=== PATIENT | male | born 1965 | race African-American/Black ===

== ENCOUNTER 2016-08-08 13:32 | Emergency (ER) | payer BC ==
--- NOTE | ~2016-08-08 | CT2 ---
[facility] A Service of [facility] & [facility] RADIOLOGY TEXT RESULTS PATIENT: XIMENA ONEILL LOCATION: [facility] : [birth year] UNIT #: [id number] AGE: [address]: Loraine Vieira MD SEX: M ORDER DR: [id number] [facility] [address] [place], [place] [address] [id number] MR#: [id number] #: [id number] NAME: XIMENA ONEILL : 1965 SEX: M STUDY DATE/TIME: 08/08/2016 20:17 UNIT: [facility] ROOM: STUDY DESCRIPTION: CT Abd and Pelv W Cont Attending Physician: Loraine Vieira M.D. Ordering Physician: Loraine Vieira M.D. Primary Care Physician: Primary Care Physician No MEDICAL IMAGING REPORT This report is preliminary unless electronic signature is present EXAM Abdomen and pelvis CT with contrast, 08/08/2016 INDICATIONS 51-year-old male with abdominal pain for a week, started swelling yesterday. Nausea. History of acid reflux and pancreatitis. TECHNIQUE Contrast-enhanced abdomen and pelvis CT was performed and compared with 02/14/2016. This CT exam was performed with one or more of the following radiation dose reduction techniques: Automatic exposure control, adjustment of mA and/or kV according to patient size, and iterative reconstruction. FINDINGS CT ABDOMEN: Included lung bases demonstrate scattered areas of atelectatic change with a lower lobe-predominance on the left and middle lobe-predominance on the right. No effusion. Aorta demonstrates no aneurysm or dissection. The spleen and right adrenal gland are unremarkable. There is a low-attenuation adrenal mass on the left measuring 3.1 cm, essentially unchanged from the prior study for technical factors. This measures fluid-attenuation but cannot be classified as an adrenal adenoma, based on CT density. Compared to a more distant study performed in 2010, it appears larger. It is still most likely benign, based on imaging features and slow interval growth over the past 6 years but should be correlated clinically. There is fatty infiltration of the liver and the gallbladder is unremarkable. The pancreas demonstrates subtle peripancreatic fat stranding associated with the proximal body of the pancreas and perhaps some subtle stranding associated with the uncinate process. Correlate clinically for signs or symptoms of mild acute pancreatitis and correlation with amylase and lipase levels is recommended. The kidneys [facility]. [facility] A Service of [facility] RADIOLOGY TEXT RESULTS PATIENT: XIMENA ONEILL LOCATION: [facility] : 65 UNIT #: [id number] AGE: [address]: Loraine Vieira MD SEX: M ORDER DR: are unremarkable. CT PELVIS: Prostate prominent but otherwise unremarkable. Bladder is unremarkable. No drainable fluid collection or free fluid in the pelvis. Bowel demonstrates no obstruction or focal inflammatory change, and the appendix is normal. Inguinal canals are unremarkable. There is no suspicious bone lesion. There are bilateral pars defects at L5-S1, no significant associated listhesis. IMPRESSION 1. There is some subtle peripancreatic fat stranding suggestive of mild acute pancreatitis. Correlate with amylase and lipase levels. 2. There is a 3.1 cm low-attenuation left adrenal mass. This is unchanged from the prior study in January last year but larger when compared to a more distant 2010 study. This is still likely to be benign but should be correlated clinically. 3. Mild fatty infiltration of the liver. 4. Appendix normal. Dictated by... Danny Hurley M.D. THIS IS AN ELECTRONICALLY VERIFIED REPORT Danny Hurley M.D. at 08/08/2016 10:27 PM CARLOS/pavan TD: 08/08/2016 21:38 JOB #: [id number] MEDICAL IMAGING REPORT Page 1 of 1 COPY
[~2016-08-08 13:32] MED LIST: ALPRAZOLAM PO
[2016-08-08 14:55] LABS: BASOPHIL# 0.1 X10e3 (0-0.3); BASOPHIL% 0.6 % (0-2.5); EOSINOPHIL# 0.2 X10e3 (0-0.7); EOSINOPHIL% 2.1 % (0.0-7.0); HEMATOCRIT 46.2 % (38.0-50.0); HEMOGLOBIN 15.7 gm/dL (13.0-16.0); LYMPHOCYTE# 2.7 X10e3 (1.0-3.5); MEAN CELL VOLUME 95.1 FL (83-96); MEAN CORPUSCULAR HEMOGLOBIN 32.4 PG (28-34); MEAN PLATELET VOLUME 7.9 FL (6.5-11.5); MONOCYTE# 0.6 X10e3 (0-1.0); MONOCYTE% 5.2 % (3.0-12.0); NEUTROPHIL# 7.2 X10e3 (1.5-7.1); NEUTROPHIL% 67.1 % (40-75); PLATELET COUNT 336 X10e3 (140-420); RED BLOOD COUNT 4.86 X10e (3.90-5.60); RED CELL DISTRIBUTION WIDTH 14.6 % (11.0-15.5); WHITE BLOOD COUNT 10.8 X10e3 (4.0-10.5)
[2016-08-08 14:59] LABS: DIFF IND NO
[2016-08-08 15:22] LABS: ALBUMIN SERUM 4.3 g/dL (3.5-5.0); ALKALINE PHOSPHATASE 90 U/L (32-92); ALT (SGPT) 64 U/L (10-40); AST (SGOT) 68 U/L (10-42); BILIRUBIN, DIRECT <0.1 mg/dL (0.0-0.2); BILIRUBIN,INDIRECT 0.2 mg/dL (0.0-0.9); BILIRUBIN,TOTAL 0.3 mg/dL (0.2-2.0); BLOOD UREA NITROGEN 9 mg/dL (9-23); BUN/CREATININE RATIO 11.25; CALCIUM SERUM 9.8 mg/dL (8.4-10.2); CARBON DIOXIDE 26 mmol/L (22-31); CHLORIDE 102 mmol/L (100-111); CREATININE SERUM 0.8 mg/dL (0.6-1.4); GLOM FILT RATE Estimated 119.9 mL/min (>60); GLUCOSE FASTING 202 mg/dL (70-110); LIPASE 45 U/L (22-51); POTASSIUM 3.8 mmol/L (3.5-5.1); PROTEIN TOTAL SERUM 7.3 g/dL (6.0-8.3); SODIUM 138 mmol/L (135-145)
[2016-08-08 18:52] LABS: URINE SOURCE CLEAN CATCH
[2016-08-08 18:56] LABS: URINE APPEARANCE CLEAR; URINE BILIRUBIN NEG (NEG); URINE BLOOD NEG (NEG); URINE COLOR YELLOW; URINE GLUCOSE NEG (NEG); URINE KETONE NEG (NEG); URINE LEUKOCYTE ESTERASE NEG (NEG); URINE NITRATE NEG (NEG); URINE PROTEIN NEG (NEG); URINE SPECIFIC GRAVITY 1.011 (1.003-1.035); URINE UROBILINOGEN 0.2 MG/DL (NEG)
[2016-08-08 18:59] LABS: CULTURE INDICATED? NO
[2016-08-09] MEDS ORDERED: BENTYL10 MG PO (16:51)
[2016-08-09] MEDS ORDERED: NAPROXEN PO (16:54)
[2016-08-09] MEDS ORDERED: ORAL ANALGESIC9 GM MT (16:55)
[2016-08-09] MEDS ORDERED: PHENERGAN PO (16:56)
[2016-08-09] MEDS ORDERED: NORVASC10 MG PO (16:56)
[2016-08-09] MEDS ORDERED: TUMS200 MG PO (16:56)
[2016-08-09] MEDS ORDERED: ESOMEPRAZOLE MA20 MG PO (16:57)
[2016-08-09] MEDS ORDERED: GABAPENTIN300 MG PO (17:07)
== END 2016-08-08 22:28 | disposition home or self-care (01) ==
LOC: CED 13:32
DX: K85.90 Acute pancreatitis without necrosis or infection, unspecified (principal); K21.9 Gastro-esophageal reflux disease without esophagitis
CPT/HCPCS: 36415; 74177; 80048; 80076; 81003; 83690; 85025; 96361; 96374; 96375; 99284; C9113; J1885; J2270; Q9967

== ENCOUNTER 2016-08-09 14:26 | Inpatient (IN) | payer BC, OTHER ==
--- NOTE | ~2016-08-09 | DS ---
Unit #: [id number] #: [id number] Patient: XIMENA ONEILL [id number] [facility] [address] [place], [place] [address] [id number] I MR#: [id number] NAME: XIMENA ONEILL ROOM: [facility] Age: 51 Sex: M Admission Date: 08/09/2016 : 1965 Discharge Date: 08/12/2016 Attending Physician: Earlene Joe M.D. Primary Care Physician: Primary Care Physician No DISCHARGE SUMMARY DIAGNOSIS ON ADMISSION Acute pancreatitis. DIAGNOSES ON DISCHARGE 1. Acute pancreatitis, recurrent, resolved. 2. History of alcohol abuse. 3. Increased liver function tests likely secondary to alcoholic liver disease. 4. Hypertension. 5. History of tobacco abuse. 6. Gastroesophageal reflux disease. 7. Left adrenal mass likely benign. Followup with primary care physician. CONSULTATIONS Dr. Chaparro Langley in GI consultation. LABS AND PROCEDURES DONE The patient's creatinine is 0.6, sodium 134, potassium is 3.7, AST 55, ALT is 84, amylase is 61, lipase is 45. White blood count 12.4, hemoglobin is 15.2, platelet count is 299. Urinalysis did not reveal any WBCs. Triglyceride level was 325. Blood culture did not reveal any growth. IMAGING: Abdominal ultrasound revealed fatty infiltration of the liver, otherwise it was negative. CT scan of the abdomen and pelvis revealed some subtle peripancreatic fat stranding suggestive of mild acute pancreatitis. There was 3.1 cm low attenuation left adrenal mass which is unchanged from prior study in January last year but larger when compared to the 2010 study, this is still likely to be benign but should be correlated clinically. HOSPITAL COURSE Hessw-hql-caik-old male, was admitted to [facility] with abdominal pain, details are as per admission history and physical. The patient was treated symptomatically for acute pancreatitis. The patient responded well and is tolerating diet well now. His amylase and lipase are much better. Elevated LFTs, they are likely secondary to alcoholic liver disease. The patient is advised to follow up with primary care physician. Left adrenal mass, it is likely benign. I advised the patient to follow up with primary care physician. Unit #: [id number] #: [id number] Patient: XIMENA ONEILL Elevated triglycerides. The patient is advised to follow up with primary care physician by having fasting lipid profile, if the patient's LFTs are elevated and it would be a difficult situation to start him on medicine for triglycerides. The patient is advised to follow up with GI. RECOMMENDATIONS ON DISCHARGE Condition is stable. Activity as tolerated. MEDICATIONS 1. Neurontin 300 mg p.o. t.i.d. 2. Phenergan 25 mg p.o. q.4h p.r.n. 3. Bentyl 10 mg p.o. q.8h p.r.n. 4. Norvasc 10 mg p.o. daily 5. Nexium 20 mg p.o. daily 6. TUMs two tablets p.o. daily 7. [place] 5/325 mg one p.o. q.8h p.r.n. #10 dispensed for back pain FOLLOWUP The patient is advised to followup with primary care physician in one week and have a CBC, CMP, and fasting lipid profile done for follow up increased triglycerides and WBC. The patient is advised to follow up with GI in 2 to 4 weeks and with JADAC as recommended regarding alcohol abuse. The patient is advised to follow up with Dr. Chaparro Langley. Dictated by... Blaise Monreal/brunilda TD: 08/12/2016 15:23 JOB #: [id number] CC: Chaparro Langley M.D. [facility]. DISCHARGE SUMMARY Page 1 of 1 X Betty Khalil MD X DISCHARGE SUMMARY
--- NOTE | ~2016-08-09 | HP ---
Unit #: [id number] #: [id number] Patient: XIMENA ONEILL [id number] [address] [place], [place] [address] [id number] I MR#: [id number] NAME: XIMENA ONEILL ROOM: 26697 Age: 51 Sex: M Admission Date: 08/09/2016 : 1965 Attending Physician: Earlene Joe M.D. Primary Care Physician: Primary Care Physician No HISTORY AND PHYSICAL CHIEF COMPLAINT Abdominal pain. HISTORY OF PRESENT ILLNESS Mr. Oneill is a nice 51-year-old male who presents to the ER for above. The patient has been in [facility] since 07/15/2016 for alcohol treatment. He does have a history of alcohol-induced pancreatitis in the past for which he has been seen at [facility]. The patient states approximately two days ago he began having epigastric pain described as deeply achy and associated with some nausea. He was seen in this emergency department yesterday and had a CT scan revealing early pancreatitis. However, amylase and lipase were normal. He was instructed to follow a clear liquid diet and was given some oral pain medications. Today, his pain became increasingly severe. He developed recurrent nausea and had one to two episodes of nonbloody emesis. He has not had any diarrhea. He denies any melena or hematochezia. He presents back to this facility today tachycardic and hypertensive with a blood pressure of 170/105. Lab work today does reveal an elevated amylase and lipase and he is being referred for admission. PAST MEDICAL HISTORY 1. Chronic alcohol abuse. 2. History of alcohol-induced pancreatitis. 3. Hypertension. 4. Tobaccoism. 5. Gastroesophageal reflux disease. PAST SURGICAL HISTORY Includes eye surgery. HOME MEDICATIONS Include: 1. Bentyl 10 mg p.o. q.8 h. for stomach cramps. 2. Naproxen 500 mg p.o. b.i.d. p.r.n. for pain. 3. Benzocaine applied to tooth q.4 h. p.r.n. for tooth pain. 4. Phenergan 25 mg p.o. q.4 h. p.r.n. for vomiting. 5. Tums 500 mg two tablets daily. 6. Norvasc 10 mg daily. 7. Nexium 20 mg daily. 8. Gabapentin 300 mg p.o. t.i.d. ALLERGIES No known drug allergies. Unit #: [id number] #: [id number] Patient: XIMENA ONEILL SOCIAL HISTORY The patient was drinking 1-2 pints of hard alcohol daily in addition to beer. His last drink was on 07/13/2016. He smokes one-half pack of cigarettes per day but does admit he would smoke up to a pack per day when he was drinking. He denies ever having any illicit drug use. He is not . FAMILY HISTORY Significant for hypertension in patient's mother. Patient's grandmother also had diabetes. No family history of pancreatitis or any sort of abdominal masses or malignancies. REVIEW OF SYSTEMS The patient endorses some increasing abdominal swelling as of the last few days and abdominal pain. He denies chest pain, palpitations, orthopnea, weight gain or loss, difficulty swallowing, vision changes, dysuria, hematuria, falls, no new tingling, numbness or weakness of extremities. No suicidal or homicidal ideation. PHYSICAL EXAMINATION VITAL SIGNS: Temperature 97.8, blood pressure 170/105, pulse rate 114, respiratory rate 16, oxygen saturation 99% on room air. GENERAL: The patient is awake, he is alert. He is oriented times 3 with good eye contact. HEENT: Pupils equally round and reactive to light bilaterally. Anicteric sclerae. No conjunctival pallor. Oropharynx with mildly dry mucous membranes. No erythema or exudate. NECK: Supple. No lymphadenopathy, no thyromegaly, no JVD. CARDIOVASCULAR: Tachycardic but regular rhythm without murmur, rub or gallop. LUNGS: Diminished bilaterally with expiratory wheezes occasionally. No wheezes, rhonchi or crackles. ABDOMEN: Soft, distended. It is tender in all four quadrants but greatest in the right and left upper quadrant without guarding or rebound. No appreciable hepatosplenomegaly. Bowel sounds are present. EXTREMITIES: No cyanosis, clubbing, or edema. Pedal pulse 2/4. SKIN: Warm, moist, without rash. NEUROLOGIC: Cranial nerves intact. Sensation, strength and deep tendon reflexes are normal. PSYCHIATRIC: No suicidal or homicidal ideation. MUSCULOSKELETAL: No significant joint abnormalities noted on exam. DIAGNOSTIC STUDIES LABORATORY: From earlier today revealed a white blood cell count of 18.3, hemoglobin 16.0, platelet count 327,000. Differential reveals 81% neutrophils and 1% bands. CMP reveals a sodium of 132, potassium 4.1, chloride 95, bicarb 27, BUN 18, creatinine 0.7, glucose 140, AST elevated 99, ALT 93, alkaline phosphatase 106. Bilirubin, LFTs are otherwise normal. Calcium is also normal. Urinalysis done yesterday was negative. IMAGING: CT scan of the abdomen and pelvis with contrast, done yesterday, reveals fatty infiltration of liver. Pancreas had subtle peripancreatic fat stranding along the proximal body of the pancreas in association with the uncinate process. There was a 3.1 cm left adrenal mass. This is felt to be benign in origin. Unit #: [id number] #: [id number] Patient: XIMENA ONEILL ASSESSMENT 1. SIRS versus sepsis secondary to #2. 2. Acute pancreatitis. 3. Hypertension. 4. Known left adrenal mass. 5. Gastroesophageal reflux disease. 6. Tobaccoism. 7. History of alcohol abuse with cessation of approximately four weeks. PLAN 1. Will admit patient to inpatient status with telemetry. 2. Will place on aggressive IV hydration in addition to pain medications and antiemetics. 3. In regard to pancreatitis, we will check followup blood work in the morning. 4. I do not clinically feel that he has infection at this time. I am going to hold antibiotics and initiate sepsis protocol. If lactic acid is elevated, I will begin antibiotic therapy. 5. I will restart Norvasc for his blood pressure and provide hydralazine on a p.r.n. basis. 6. Initiate PPI therapy IV in regard to his reflux. 7. Briefly counseled regarding tobaccoism. 8. DVT prophylaxis. 9. I will check an alcohol level on blood in the lab but this should be negative given his current living conditions. 10. Will also check urine drug screen. Dictated by Earlene Joe M.D. CORNELIO/carl TD: 08/09/2016 19:11 JOB #: [id number] HISTORY AND PHYSICAL Page 1 of 1 X Earlene Joe MD X HISTORY AND PHYSICAL
--- NOTE | ~2016-08-09 | US6 ---
[facility] A Service of [facility] RADIOLOGY TEXT RESULTS PATIENT: XIMENA ONEILL LOCATION: [facility] : [birth year] UNIT #: [id number] AGE: [address]: Earlene Joe MD SEX: M ORDER DR: [id number] [place] [address] [facility] [place], [place] [address] [id number] MR#: [id number] Acc #: [id number] NAME: XIMENA ONEILL : 1965 SEX: M STUDY DATE/TIME: 08/10/2016 10:29 UNIT: [facility] ROOM: [facility] STUDY DESCRIPTION: US Abdominal Limited Attending Physician: Earlene Joe M.D. Ordering Physician: Earlene Joe M.D. Primary Care Physician: Primary Care Physician No MEDICAL IMAGING REPORT This report is preliminary unless electronic signature is present EXAM Right upper quadrant ultrasound 08/10/2016 INDICATION Abdominal pain for a few days. Findings on recent CT suspicious for acute pancreatitis. TECHNIQUE Sonographic imaging of the right upper quadrant was performed. Correlation is made with CT 08/08/2016. FINDINGS Visualized aspects of the pancreas are unremarkable. Portions were obscured by bowel gas and not seen or evaluated. The liver demonstrates increased echogenicity compared to the right kidney most characteristic of fatty infiltration. It measures 19.2 cm long axis and is otherwise unremarkable. The right kidney is nonobstructed. The gallbladder is normal. Extrahepatic common bile duct measures 6-7 mm, borderline in diameter. IMPRESSION Fatty infiltration of the liver; otherwise, negative right upper quadrant ultrasound. The common bile duct is borderline in diameter at 6-7 mm. Dictated by... Danny Hurley M.D. THIS IS AN ELECTRONICALLY VERIFIED REPORT Danny Hurley M.D. at 08/10/2016 2:59 PM CARLOS/santosh [facility] A Service of [facility] RADIOLOGY TEXT RESULTS PATIENT: XIMENA ONEILL LOCATION: [facility] 554-01 : [birth year] UNIT #: [id number] AGE: [address]: Earlene Joe MD SEX: M ORDER DR: TD: 08/10/2016 14:19 JOB #: [id number] MEDICAL IMAGING REPORT Page 1 of 1 COPY
--- NOTE | ~2016-08-09 | CO ---
Unit #: [id number] #: [id number] Patient: XIMENA ONEILL [id number] [address] [place], [place] [address] [id number] I MR#: [id number] NAME: XIMENA ONEILL ROOM: 47 Age: 51 Sex: M Admission Date: 08/09/2016 : 1965 Attending Physician: Earlene Joe M.D. Primary Care Physician: Primary Care Physician No Consultation Date: 08/11/2016 CONSULTATION REPORT DICTATED FOR Dr. Chaparro Langley. PRIMARY CARE PHYSICIAN No primary care physician. REASON FOR CONSULTATION Acute pancreatitis. HISTORY OF PRESENT ILLNESS The patient is a very pleasant 51-year-old male with past medical history of alcohol abuse, recurrent alcohol-induced pancreatitis and hypertension, his last episode of acute pancreatitis was over a year and half ago. The patient has presented to the emergency room with acute onset of epigastric pain associated with nausea and vomiting. The patient was initially seen in the emergency room one-day prior, at the time CT show mild acute pancreatitis but pancreatic enzymes were normal. The patient was, therefore, sent home. However, his symptoms progressively worsened, and therefore, returned to the emergency room for evaluation. In the ER, his pancreatic enzymes were noted to be significantly elevated. There is no history of fever, chills, recent weight loss, or overt gastrointestinal blood loss in form of hematemesis, melena, or hematochezia. The patient has a long-standing history of alcohol abuse, he was drinking 1 to 3 pints of hard liquor on a daily basis. His last drink was over 2 months ago and he is currently in [facility] since then. Currently, the patient is comfortable, still has epigastric pain. Nausea has improved and he has been tolerating a regular diet. PAST MEDICAL HISTORY Chronic alcohol abuse, alcohol-induced pancreatitis, hypertension, and GERD. PAST SURGICAL HISTORY Eye surgery. HOME MEDICATIONS Bentyl, naproxen, benzocaine, Phenergan, Tums, Norvasc, Nexium, and gabapentin. ALLERGIES No known drug allergies. SOCIAL HISTORY Unit #: [id number] #: [id number] Patient: XIMENA ONEILL The patient lives at home alone. He was drinking 1 to 3 pints of hard liquor on a daily basis. His last drink was about 2 months ago. He smokes half a pack of cigarettes a day. He denies illicit drug use. FAMILY HISTORY None for colon or pancreatic cancer, or liver disease. REVIEW OF SYSTEMS Detailed review of organ systems does not reveal any recent weight loss. No history of fever, chills, or rigors. No history of headache, seizures, chest pain, syncope. There is history of epigastric pain, nausea, vomiting. No history of cough, expectoration, or hemoptysis. No recent change in bowel habits or overt gastrointestinal blood loss in the form of hematemesis, melena, or hematochezia. The rest of review of organ systems are unremarkable. PHYSICAL EXAMINATION GENERAL: The patient is awake, alert, appears comfortable, in no acute distress. VITAL SIGNS: Stable with temperature 98.1, blood pressure 145/86, heart rate 93, respirations 16. HEENT: There is no pallor. No scleral icterus. No lymphadenopathy or peripheral edema. CARDIOVASCULAR: Regular rate and rhythm. LUNGS: Clear to auscultation bilaterally. ABDOMEN: Soft, mild gaseous distention, tender epigastric area. No guarding. Liver and spleen not palpable. Bowel sounds are normal. DIAGNOSTIC STUDIES LABORATORY RESULTS: Complete metabolic panel notable for glucose 126, normal BUN and creatinine, potassium 3.4. AST 89, ALT 102, alkaline phosphatase 94. Lipase 74 down from 383 on admission. CBC with WBC 12.3, normal hemoglobin of 15.6, and platelets 279. IMAGING STUDIES: CT of abdomen and pelvis show subtle peripancreatic fat stranding suggestive of mild acute pancreatitis, mild fatty infiltration of liver. Abdominal ultrasound show fatty infiltration of the liver and borderline dilated common bile duct at 6 to 7 mm. CLINICAL IMPRESSION AND PLAN The patient's presentation and clinical findings suggested recurrent pancreatitis secondary to history of alcohol abuse. There is no suggestion of biliary etiology. The patient is feeling somewhat better, tolerating regular diet. No further intervention is warranted at this time. We will continue with supportive management and re-evaluate the patient in the morning. The patient and plan of care discussed in detail with Dr. Langley. Further recommendations to follow. Thank you very much for asking us to see this patient. We appreciate the consult. Dictated by... LILI Griffin/verónica TD: 08/12/2016 03:55 Unit #: [id number] #: [id number] Patient: XIMENA ONEILL JOB #: [id number] CONSULTATION REPORT Page 1 of 1 X X CONSULTATION REPORT
[2016-08-09 14:58] LABS: BASOPHIL# 0.1 X10e3 (0-0.3); BASOPHIL% 0.4 % (0-2.5); EOSINOPHIL# 0.1 X10e3 (0-0.7); EOSINOPHIL% 0.7 % (0.0-7.0); HEMATOCRIT 47.2 % (38.0-50.0); LYMPHOCYTE# 1.9 X10e3 (1.0-3.5); LYMPHOCYTE% 10.2 % (17.0-45.0); MEAN CELL VOLUME 95.3 FL (83-96); MEAN CORPUSCULAR HEMOGLOBIN 32.2 PG (28-34); MEAN CORPUSCULAR HGB CONC 33.8 g/dL (30-36); MEAN PLATELET VOLUME 7.4 FL (6.5-11.5); MONOCYTE# 0.8 X10e3 (0-1.0); MONOCYTE% 4.2 % (3.0-12.0); NEUTROPHIL# 15.4 X10e3 (1.5-7.1); NEUTROPHIL% 84.5 % (40-75); PLATELET COUNT 327 X10e3 (140-420); RED BLOOD COUNT 4.96 X10e (3.90-5.60)
[2016-08-09 15:00] LABS: DIFF IND YES; WHITE BLOOD COUNT 18.3 X10e3 (4.0-10.5)
[2016-08-09 15:19] LABS: ALBUMIN SERUM 4.7 g/dL (3.5-5.0); BILIRUBIN, DIRECT 0.1 mg/dL (0.0-0.2); BILIRUBIN,INDIRECT 0.6 mg/dL (0.0-0.9); BILIRUBIN,TOTAL 0.7 mg/dL (0.2-2.0); BUN/CREATININE RATIO 11.42; CALCIUM SERUM 9.7 mg/dL (8.4-10.2); CREATININE SERUM 0.7 mg/dL (0.6-1.4); GLOM FILT RATE Estimated 126.7 mL/min (>60); POTASSIUM 4.1 mmol/L (3.5-5.1); PROTEIN TOTAL SERUM 8.3 g/dL (6.0-8.3)
[2016-08-09 15:20] LABS: PLATELET ESTIMATE NORMAL (NORMAL); RBC NORMAL YES
[2016-08-09] MEDS ORDERED: BENTYL10 MG PO (16:51)
[2016-08-09] MEDS ORDERED: NAPROXEN PO (16:54)
[2016-08-09] MEDS ORDERED: ORAL ANALGESIC9 GM MT (16:55)
[2016-08-09] MEDS ORDERED: NORVASC10 MG PO (16:56)
[2016-08-09] MEDS ORDERED: PHENERGAN PO (16:56)
[2016-08-09] MEDS ORDERED: TUMS200 MG PO (16:56)
[2016-08-09] MEDS ORDERED: ESOMEPRAZOLE MA20 MG PO (16:57)
[2016-08-09] MEDS ORDERED: GABAPENTIN300 MG PO (17:07)
[2016-08-09 18:48] LABS: AMPHETAMINE NEG (NEG); BARBITURATES NEG (NEG); BENZODIAZEPINES NEG (NEG); COCAINE NEG (NEG); MARIJUANA NEG (NEG); OPIATES POS (NEG); TRICYCLIC ANTIDEPRESSANTS NEG (NEG); U METHADONE NEG (NEG)
[2016-08-10 06:05] LABS: BASOPHIL# 0.1 X10e3 (0-0.3); BASOPHIL% 0.5 % (0-2.5); EOSINOPHIL# 0.3 X10e3 (0-0.7); HEMATOCRIT 44.6 % (38.0-50.0); HEMOGLOBIN 14.9 gm/dL (13.0-16.0); LYMPHOCYTE# 2.8 X10e3 (1.0-3.5); LYMPHOCYTE% 21.8 % (17.0-45.0); MEAN CELL VOLUME 95.6 FL (83-96); MEAN CORPUSCULAR HGB CONC 33.5 g/dL (30-36); MEAN PLATELET VOLUME 7.7 FL (6.5-11.5); MONOCYTE# 1.1 X10e3 (0-1.0); MONOCYTE% 8.3 % (3.0-12.0); NEUTROPHIL# 8.7 X10e3 (1.5-7.1); NEUTROPHIL% 67.4 % (40-75); PLATELET COUNT 285 X10e3 (140-420); RED BLOOD COUNT 4.67 X10e (3.90-5.60); RED CELL DISTRIBUTION WIDTH 15.2 % (11.0-15.5); WHITE BLOOD COUNT 12.9 X10e3 (4.0-10.5)
[2016-08-10 06:12] LABS: DIFF IND NO
[2016-08-10 06:42] LABS: ALBUMIN SERUM 4.2 g/dL (3.5-5.0); BILIRUBIN,TOTAL 0.8 mg/dL (0.2-2.0); CALCIUM SERUM 9.3 mg/dL (8.4-10.2); CREATININE SERUM 0.5 mg/dL (0.6-1.4); GLOM FILT RATE Estimated 145.5 mL/min (>60); MAGNESIUM 1.8 mg/dL (1.6-3.0); POTASSIUM 3.8 mmol/L (3.5-5.1); PROTEIN TOTAL SERUM 6.9 g/dL (6.0-8.3)
[2016-08-11 03:02] LABS: HEMATOCRIT 46.7 % (38.0-50.0); HEMOGLOBIN 15.6 gm/dL (13.0-16.0); MEAN CELL VOLUME 95.7 FL (83-96); MEAN CORPUSCULAR HGB CONC 33.4 g/dL (30-36); MEAN PLATELET VOLUME 7.4 FL (6.5-11.5); RED BLOOD COUNT 4.88 X10e (3.90-5.60); RED CELL DISTRIBUTION WIDTH 15.2 % (11.0-15.5); WHITE BLOOD COUNT 12.3 X10e3 (4.0-10.5)
[2016-08-11 03:37] LABS: ALBUMIN SERUM 4.7 g/dL (3.5-5.0); BILIRUBIN,TOTAL 0.9 mg/dL (0.2-2.0); CALCIUM SERUM 9.1 mg/dL (8.4-10.2); CREATININE SERUM 0.6 mg/dL (0.6-1.4); POTASSIUM 3.4 mmol/L (3.5-5.1); PROTEIN TOTAL SERUM 7.9 g/dL (6.0-8.3)
[2016-08-12 03:24] LABS: HEMATOCRIT 45.6 % (38.0-50.0); HEMOGLOBIN 15.2 gm/dL (13.0-16.0); MEAN CELL VOLUME 95.1 FL (83-96); MEAN CORPUSCULAR HEMOGLOBIN 31.7 PG (28-34); MEAN CORPUSCULAR HGB CONC 33.3 g/dL (30-36); MEAN PLATELET VOLUME 7.3 FL (6.5-11.5); RED BLOOD COUNT 4.79 X10e (3.90-5.60); RED CELL DISTRIBUTION WIDTH 14.5 % (11.0-15.5); WHITE BLOOD COUNT 12.4 X10e3 (4.0-10.5)
[2016-08-12 04:00] LABS: ALBUMIN SERUM 4.7 g/dL (3.5-5.0); BILIRUBIN,TOTAL 0.8 mg/dL (0.2-2.0); BUN/CREATININE RATIO 8.33; CALCIUM SERUM 9.8 mg/dL (8.4-10.2); CREATININE SERUM 0.6 mg/dL (0.6-1.4); POTASSIUM 3.7 mmol/L (3.5-5.1); PROTEIN TOTAL SERUM 8.2 g/dL (6.0-8.3)
[2016-08-12] MEDS ORDERED: LISINOPRIL10 MG PO (11:20)
[2016-08-12] MEDS ORDERED: HYDROCODON-ACE1 EAC7 PO (11:21)
== END 2016-08-12 11:44 | disposition home or self-care (01) | DRG 871 ==
LOC: CED 14:26 → C5B 17:45 → CEDOF 17:45 → CED 17:57 → C5B 20:43 → CEDOF 20:43 → C4C 08-10 21:14
PROVIDERS: Emergency Medicine; Internal Medicine
DX: A41.9 Sepsis, unspecified organism (principal); K85.90 Acute pancreatitis without necrosis or infection, unspecified; K70.9 Alcoholic liver disease, unspecified; R65.20 Severe sepsis without septic shock; R94.5 Abnormal results of liver function studies; I10 Essential (primary) hypertension; K21.9 Gastro-esophageal reflux disease without esophagitis; F17.210 Nicotine dependence, cigarettes, uncomplicated; D35.02 Benign neoplasm of left adrenal gland; R74.0 Nonspecific elevation of levels of transaminase and lactic acid dehydrogenase [LDH]; E87.6 Hypokalemia; F10.21 Alcohol dependence, in remission
CPT/HCPCS: 36415; 76705; 80048; 80053; 80076; 80307; 82150; 83605; 83690; 83735; 84478; 85025; 85027; 87040; 94760; 99285; G0480; J1650; J2270; J2405; J2543